=== PATIENT | female | born 1995 | race Caucasian/White ===

== ENCOUNTER 2023-05-20 21:57 | Emergency (ER) | payer OTHER, SELFPAY ==
[2023-05-20 21:58] VITALS: BP 111/79; PULSE 88; RESP 16; TEMP 36.3; O2SAT 100; BMI 27.6
--- NOTE | 2023-05-20 23:03 | EDS_ITS ---
HPI History of Present Illness Chief Complaint: Lower Extremity Injury Informant: patient and spouse/S.O. Narrative Narrative: Patient is a 28-year-old female with no significant past medical history who is 5 days from vaginal delivery. She denies any fevers chills chest pain or shortness of breath but states she was evaluated by her doctor today secondary to some redness and swelling of the right upper leg. There is concern that she may have developed a blood clot and secondary to this was sent in for evaluation [facility] Medical History no medical history Allergy/AdvReac Type Severity Reaction Status Date / Time No Known Allergies Allergy Verified 05/20/23 21:57 Social History Smoking Status: Never smoker ROS ROS ED Constitutional Constitutional ED: Denies chills or fever(s) ENT ENT ED: Denies sore throat Cardiovascular Cardiovascular: Denies chest pain, palpitations or racing heartbeat Respiratory/Chest Respiratory/Chest: Denies cough or dyspnea Gastrointestinal Gastrointestinal: Denies abdominal pain, diarrhea, nausea or vomiting Genitourinary Genitourinary ED: Denies dysuria Musculoskeletal Musculoskeletal: Denies myalgias Integumentary Reports other Details: Positive redness and swelling to the right medial leg just below the knee Neurologic Neurologic: Denies headache(s), paresthesias or weakness Hematologic/Lymphatic Hematologic/Lymphatic: Denies easy bleeding or easy bruising EXAM Physical Exam Const Vital Signs: 05/20/23 21:58 Temperature 97.3 F L Temperature Source Temporal Pulse Rate 88 Respiratory Rate 16 Blood Pressure 111/79 Blood Pressure Mean 89 Pulse Ox 100 Positive well nourished and well developed General Appearance ED: well developed HEENT HEENT Narrative: Normocephalic atraumatic Eyes PERRL and EOMs intact bilaterally Neck supple and no JVD Resp normal respiratory effort and clear to auscultation bilaterally Cardio regular rate and regular rhythm Rate: other Other Details: Radial and carotid pulses are equal and symmetric Extremity Extremity Narrative: Right lower extremity is neurovascularly intact. Patient has asymmetric erythema and warmth along the medial aspect of the right lower leg just below the knee. There is a palpable cord present consistent with a superficial thrombophlebitis. Negative Homans' sign bilaterally. No joint effusion noted. Neuro oriented x3, CN's II-XII intact bilaterally and no sensory deficits noted Sensorium / Orientation: alert Motor Exam: strength 5/5 throughout Psych mental status grossly normal Skin Skin Narrative: Soft tissue skin changes as documented above MDM MDM MDM Narrative Medical decision making narrative: Patient presented to ER with stable vitals and no report of chest pain. She recently had a child and therefore is in a hypercoagulable state from the . Her physical exam indicates this is most likely superficial thrombophlebitis based on the fact there is no asymmetric swelling and the redness and warmth and palpable cord is superficial in nature. As she is not tachycardic or hypoxic or having pleuritic chest pain and do not feel there is a need for a D-dimer or CTA as my concern for pulmonary embolus is low. Also based on the fact that she has not had any type of sick symptoms and this developed after this is most likely a superficial thrombophlebitis and not cellulitis or abscess. Patient will be given Lovenox as protection at this time for potential deep vein thrombosis which will be compatible with her and breast-feeding status. However as she does not have signs of PE or infection and vitals are stable she can be discharged home and have her venous duplex obtained on an outpatient basis History & Record Review Discussion w/independent historian: Patient and Family Discharge Plan Triage Chief Complaint: Lower Extremity Injury ED Provider: Wong Barlow Dx/Rx/DC Orders Clinical Impression: Superficial thrombophlebitis in , delivered Instructions: DVT in , DVT Dc Other Ambulatory Orders: Venous Duplex US, Unilateral (Stat) Facility: [facility] - Location: [facility] Ordered By: Dr. Wong Barlow Primary Care Provider: Care Physician,No Primary Referrals: Care Physician,No Primary [Primary Care Provider] - Activity Restrictions/Additional Instructions: Your history and physical exam indicate you have a superficial blood clot in your right leg. However in order to ensure this is not a deep vein thrombosis return to the hospital for your outpatient ultrasound/venous duplex tomorrow. If you have any chest pain or shortness of breath or any further concerns please return for repeat evaluation. Disposition Disposition: Home, Self Care Discharge Date/Time: 05/20/23 23:45
[2023-05-20] MEDS: Enoxaparin 100 MG/ML Syringe SC (23:27)
== END 2023-05-20 23:45 | disposition home or self-care (01) ==
PROVIDERS: Emergency Provider Emergency Medicine; Visit Provider Emergency Medicine
DX: O87.0 Superficial thrombophlebitis in the puerperium (principal); I80.01 Phlebitis and thrombophlebitis of superficial vessels of right lower extremity
CPT/HCPCS: 99282

== ENCOUNTER → 2023-05-21 | Outpatient (CLI) | payer SELFPAY, OTHER ==
--- NOTE | 2023-05-21 09:52 | VDLE_ITS ---
Reason For Study: Right leg swelling RIGHT GSV is normal. CFV is compressible, spontaneous, phasic, competent and demonstrates normal augmentation. FV is compressible, spontaneous, phasic, competent and demonstrates normal augmentation. POP V is compressible, spontaneous, phasic, competent and demonstrates normal augmentation. T/P Trunk is compressible. PTV is compressible. RT PerV is compressible. Thrombus filled varicose veins noted at the right knee area. Procedure This is a venous duplex using B-mode, color flow and spectral Doppler. Exam performed in department. A preliminary report was called and/or faxed to [facility] RN. VL/Venous Duplex US, Unilateral Interpretation Summary There is no evidence of right lower extremity deep vein thrombosis. Usual throm bophlebitis involving varicose veins at the right medial knee area Patent and compressible right great saphenous vein Ordering Physician: Wong Barlow Performed By: Emma Perez RVT
== END | disposition home or self-care (01) ==
PROVIDERS: Referring Provider Emergency Medicine; Visit Provider Emergency Medicine
DX: R22.41 Localized swelling, mass and lump, right lower limb (principal)
CPT/HCPCS: 93971